=== PATIENT | female | born 1980 | race Caucasian/White ===

== ENCOUNTER 2018-07-30 09:09 | Emergency (ER) | payer BC, OTHER ==
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
[2018-07-30] MEDS ORDERED: Ketorolac INJ* 60 MG/2 ML VIAL IM ONE (10:23)
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
== END 2018-07-30 11:17 | disposition home or self-care (01) ==
LOC: UCCORT 09:09
DX: S06.0X0A Concussion without loss of consciousness, initial encounter (principal); Y04.2XXA Assault by strike against or bumped into by another person, initial encounter; Y93.9 Activity, unspecified; Y92.218 Other school as the place of occurrence of the external cause; Y99.0 Civilian activity done for income or pay
CPT/HCPCS: 70450; 96372; 99201; G0463; J1885